=== PATIENT | female | born 1980 | race Caucasian/White ===

== ENCOUNTER 2016-08-02 09:06 | Emergency (ER) | payer MEDICAID ==
[~2016-08-02] VITALS: Wt 80.5 kg
[~2016-08-02 09:06] MED LIST: CIPR500T4 PO
[2016-08-02] MEDS ORDERED: ONDANSETRON (ODT) 4 MG TAB ODT STA (09:42)
--- NOTE | 2016-08-02 09:49 | ERD ---
ER Documentation Chief Complaint Date/Time DATE: 08/02/16 TIME: 09:38 Chief Complaint abdominal pain with nausea and vomiting for 3 days. no diarrhea HPI 36 y/o female presents to ED for epigastric pain for 2 weeks. Vomiting with epigastric pain for the past 2 days stated that she vomits every time she eats. Pain was described as dull/sharp nonradiating with a pain rate of 7/10 at this time. Did not take any medications at home. Denies headache, loss of consciousness, dizziness, blurry vision, changes in vision, photophobia, facial pain, ear pain, throat pain, difficulty swallowing, neck pain, shoulder pain, chest pain, cough, hemoptysis, back pain, loss of appetite, hematochezia, diarrhea, constipation, urinary symptoms, , the possibility of being , bladder and bowel incontinences, extremity weakness, extremity tenderness, numbness or tingling sensation, difficulty walking, recent travel, recent exposure to illness, recent antibiotic use in the last 3 months, fever, chills. Allergy: NKA PMH: Denies Family medical history: Denies AO LMP: 07/04/2017 Medications: Denies Surgery: 2 Primary Social History: Does not work at this time Denies smoking, use of alcohol, use of illegal drugs. ROS All systems reviewed and are negative except as per history of present illness. Medications Home Meds Active Scripts Ciprofloxacin Hcl* (Ciprofloxacin Hcl*) 500 Mg Tablet, 500 MG PO BID for 7 Days , TAB Prov:SIMEON KOCH PA-C 11/18/15 Allergies Allergies: Coded Allergies: No Known Allergy (Unverified , 04/17/14) PMhx/Soc History of Surgery: Yes (CESARIAN) Hx Alcohol Use: No Hx Substance Use: No Hx Tobacco Use: No Smoking Status: Never smoker Physical Exam Vitals Vital Signs Date Time Temp Pulse Resp B/P Pulse Ox O2 Delivery O2 Flow Rate FiO2 08/02/16 09:21 98.1 78 21 124/64 97 Physical Exam CONSTITUTIONAL: Well-appearing; well-nourished; in no apparent distress. HEAD: Normocephalic; atraumatic. EYES: Conjunctiva clear, sclera non-icteric, EOM intact. PERRL Ears: Hearing intact. EACs clear, TMs non-bulging, non-inflamed, translucent & mobile, ossicles normal appearance, No obstructions, no erythema, no discharges Nose: No obstructions. No polyps. No external lesions. Mucosa non-inflamed. No external lesions, septum and turbinates normal. No rhinorrhea. No discharges. Frontal sinus is non-tender to palpation. Maxillary sinus is non-tender to palpation. MOUTH: Moist mucous membranes, no lesion, no obstructions, no vesicles, no thrush, patent airway Throat: Uvula in midline. Right tonsil is +1 with no erythema, no exudate. Left tonsil is +1 with no erythema, no exudate. Tolerating secretions well. Good gag reflex. Patent airway. Neck: Supple, without lesions, bruits, or adenopathy. No mass. Thyroid non- enlarged and non-tender to palpation. CHEST: Symmetrical chest. Respirations even and not labored. No retractions noted. CARDIOVASCULAR: Normal S1, S2. RRR. No murmurs, gallops. RESPIRATORY: Normal chest excursion with respiration; breath sounds clear and equal bilaterally; no wheezes, rhonchi, or rales. Breathing even and unlabored. Speaking in clear, full, and complete sentences w/ ease. ABDOMEN: Normal bowel sounds normal. Soft, round, non-distended, non-guarding, no rebound, no organomegaly, no masses, no pulsating abdominal mass. No hernia. No peritoneal signs. Right upper abdominal tenderness on palpation. : No CVA tenderness. BACK: Symmetrical shoulder. Spine is midline without deformity, tenderness. No evidence of trauma or deformity. PELVIS: Stable pelvis. No evidence of trauma or deformity. MUSCULOSKELETAL: Normal gait and station. No misalignment, asymmetry, crepitation, defects, tenderness, masses, effusions, decreased range of motion, instability, atrophy or abnormal strength or tone in the head, neck, spine, ribs , pelvis or extremities. No calf tenderness. NEUROVASCULAR: Distal pulses are present. Pedal pulse are present, equal, and normal. Capillary refills are < 2 seconds. NEUROLOGIC: Alert and oriented x4. Speaks full and clear sentences. Cranial Nerves II-XII normal. Sensation to pain, touch, and proprioception normal. Grossly unremarkable. No neurologic deficits. Romberg test is negative. PSYCHOLOGICAL: The patients mood and manner are appropriate. No hallucinations , delusions. Not SI. Not HI. Has the capacity to decide for self SKIN: Normal for age and ethnicity; warm; dry; good turgor; no apparent lesions or exudates. No rashes, hives, discoloration. Intact. Result Diagram: 08/02/1695108/02/16951 Results 24 hrs Laboratory Tests Test 08/02/16 09:52 Alanine Aminotransferase (ALT/SGPT) 54IU/L Albumin 4.2g/dl Albumin/Globulin Ratio 1.10 Alkaline Phosphatase 115IU/L Anion Gap 16 Aspartate Amino Transf (AST/SGOT) 35IU/L Basophils # 0.010^3/ul Basophils % 0.3% Blood Urea Nitrogen 8mg/dl Calcium Level 9.5mg/dl Carbon Dioxide Level 28mmol/L Chloride Level 101mmol/L Creatinine 0.59mg/dl Direct Bilirubin 0.00mg/dl Eosinophils # 0.010^3/ul Eosinophils % 0.1% Globulin 3.80g/dl Glucose Level 105mg/dl Hematocrit 39.4% Hemoglobin 14.0g/dl Indirect Bilirubin 0.4mg/dl Lipase 44U/L Lymphocytes # 1.410^3/ul Lymphocytes % 12.2% Mean Corpuscular Hemoglobin 29.8pg Mean Corpuscular Hemoglobin Concent 35.6g/dl Mean Corpuscular Volume 83.7fl Mean Platelet Volume 8.6fl Monocytes # 0.810^3/ul Monocytes % 6.9% Neutrophils # 9.310^3/ul Neutrophils % 80.5% Nucleated Red Blood Cells # 0.010^3/ul Nucleated Red Blood Cells % 0.0/100WBC Platelet Count 52983^3/UL Potassium Level 4.2mmol/L Red Blood Count 4.7010^6/ul Red Cell Distribution Width 14.0% Sodium Level 141mmol/L Total Bilirubin 0.4mg/dl Total Protein 8.0g/dl Urine Bacteria FEW Urine Bilirubin NEGATIVE Urine Clarity CLEAR Urine Color LT. YELLOW Urine Glucose NEGATIVE% Urine Hemoglobin NEGATIVE Urine Ketones TRACE Urine Leukocyte Esterase 1+ Urine Microscopic RBC NONE SEEN/HPF Urine Microscopic WBC 5-10/HPF Urine Nitrite NEGATIVE Urine Specific [place] 1.025 Urine Squamous Epithelial Cells MODERATE Urine Total Protein NEGATIVE Urine Urobilinogen 0.2 E.U./dL Urine pH 6.0 White Blood Count 11.610^3/ul Current Medications Medications (Trade) Dose Ordered Sig/Lazarus Route PRN Reason Start Time Stop Time Status Last Admin Dose Admin Miscellaneous Medication (Gi Cocktail (2)) 40 ml ONCE ONCE PO 08/02/16 10:00 08/02/16 10:01 DC 08/02/16 10:05 Ondansetron HCl (Zofran Odt) 4 mg ONCE STAT ODT 08/02/16 09:42 08/02/16 09:44 DC 08/02/16 10:05 Procedures/MDM Examination: Unremarkable examination except right upper abdominal tenderness on palpation. No peritoneal signs. Disease process, medical treatment was explained to the patient and family member. They verbalized understanding and agreed with the diagnostic tests, medical treatment, and follow-up care. Radiology: Abdominal ultrasound FINDINGS: The liver demonstrates increased echogenicity. The liver is normal in size. The liver measures 15.6 cm in length. There are no focal solid lesions seen. There is no intrahepatic biliary duct dilatation. The portal vein is patent with normal direction of flow. No gallstones are identified within the gallbladder. There is no pericholecystic fluid or gallbladder wall thickening. The common bile duct measures 2.2 mm in maximal dimension. The visualized portions of the pancreas are unremarkable. Right kidney is unremarkable measures 10.7 cm. No free fluid is identified. RPTAT: AA IMPRESSION: Mild fatty infiltration of the liver. Otherwise no evidence of cholelithiasis or biliary ductal dilatation. Blood works unremarkable. POC urine : Urinalysis: Leukocyte esterase is 1+ Treatment: GI cocktail p.o. Re-evaluation: Relieve the pain. Consultation: None Differential diagnosis: Cholecystitis versus abdominal pain versus epigastric pain versus vomiting versus urinary tract infection Medical decision makin36 y/o female presents to ED for epigastric pain for 2 weeks. Vomiting with epigastric pain for the past 2 days stated that she vomits every time she eats. Pain was described as dull/sharp nonradiating with a pain rate of 7/10 at this time. Did not take any medications at home. Patient 's complaint, patient's presentation, my physical findings, diagnostic test results are consistent with my final diagnosis of fatty liver, urinary tract infection. Medications prescribed are the following: Macrobid, ranitidine. Patient and family member are made aware of the side effects and adverse reactions of the medications prescribed. Instructed on when to seek emergent and medical attention in case allergic/anaphylactic reactions or severe side effects and or adverse reactions to medications. Patient and family member verbalized understanding. Patient instructed Instructed to follow-up with his PCP in 24-48 hours. Instructed to Call 911 for chest pain, shortness of breath. Advised to come back here in ED as soon as possible for severity of symptoms which includes but not limited to: any new symptoms; shortness of breath/difficulty of breathing; cardiovascular changes; severe gastrointestinal symptoms; signs and symptoms of bleeding and or infection; signs of compartment syndrome/neurovascular changes; neurological changes/deficits. Patient and family member verbalized understanding. Upon discharge, patient is alert and oriented x 4, speaks full and clear sentences, denies pain, has no neurological deficits, has no neurovascular deficits, difficulty of breathing. Breathing even and unlabored. Lung sounds are clear to auscultation. Denies abdominal pain. No abdominal tenderness. Not in distress. Appears comfortable. Ambulatory with steady gait. Appears satisfied with care provided here in ED. Departure Diagnosis: Primary Impression: Abdominal pain Abdominal location: epigastric Qualified Code: R10.13 - Epigastric pain Additional Impressions: UTI (urinary tract infection) Hematuria presence: without hematuria Fatty liver Condition: Good Additional Instructions: Follow-up with PCP in 24-48 hours. ALYCE BARLOW Aug 02, 2016 09:49
[2016-08-02] MEDS ORDERED: LIDOCAINE/MYLANTA 40 ML BTL PO ONE (10:00)
[2016-08-02 10:16] LABS: ADD UMIC YES; URINE BILIRUBIN (Dip) NEGATIVE (NEGATIVE); URINE BLOOD (Dip) NEGATIVE (NEGATIVE); URINE COLOR LT. YELLOW (YELLOW); URINE GLUCOSE (Dip) NEGATIVE (NEGATIVE); URINE KETONES (Dip) TRACE (NEGATIVE); URINE LEUKOCYTE ESTERASE (Dip) 1+ (NEGATIVE); URINE NITRITE (Dip) NEGATIVE (NEGATIVE); URINE TOTAL PROTEIN (Dip) NEGATIVE (NEGATIVE); URINE UROBILINOGEN (Dip) 0.2 E.U./dL (0.1-1.0)
[2016-08-02 10:20] LABS: BASOPHILS % 0.3 % (0.0-2.0); EOSINOPHILS % 0.1 % (0.0-7.0); HEMATOCRIT 39.4 % (37.0-47.0); LYMPHOCYTES # 1.4 10^3/ul (0.8-2.9); LYMPHOCYTES % 12.2 % (15.0-51.0); MEAN CORPUSCULAR HEMOGLOBIN 29.8 pg (29.0-33.0); MEAN CORPUSCULAR HGB CONC 35.6 g/dl (32.0-37.0); MEAN CORPUSCULAR VOLUME 83.7 fl (82.0-101.0); MEAN PLATELET VOLUME 8.6 fl (7.4-10.4); MONOCYTE # 0.8 10^3/ul (0.3-0.9); MONOCYTES % 6.9 % (0.0-11.0); NEUTROPHIL # 9.3 10^3/ul (1.6-7.5); NEUTROPHILS % 80.5 % (39.0-77.0); PLATELET COUNT 213 10^3/UL (140-440); UNCORRECTED WBC 11.6 10^3/ul (4.8-10.8); WHITE BLOOD COUNT 11.6 10^3/ul (4.8-10.8)
[2016-08-02 10:25] LABS: CONDITION 1
[2016-08-02 10:26] LABS: ALBUMIN 4.2 g/dl (3.3-4.9)
[2016-08-02 10:27] LABS: POTASSIUM 4.2 mmol/L (3.5-5.1)
[2016-08-02 10:28] LABS: BACTERIA,URINE FEW; SQUAMOUS EPITHELIAL CELL,UR MODERATE; URINE RBCS NONE SEEN /HPF (0)
[2016-08-02 10:29] LABS: BILIRUBIN,INDIRECT 0.4 mg/dl (0-1.1); BILIRUBIN,TOTAL 0.4 mg/dl (0.2-1.3); CREATININE 0.59 mg/dl (0.44-1.00)
[2016-08-02 10:30] LABS: ALBUMIN/GLOBULIN RATIO 1.1; CALCIUM 9.5 mg/dl (8.4-10.2)
--- NOTE | 2016-08-02 10:48 | RADRPT ---
PROCEDURE: US Abdomen. CLINICAL INDICATION: Pain TECHNIQUE: Multiple real-time images were acquired of the patient's abdomen utilizing a high resol ution transducer. COMPARISON: CT abdomen pelvis 11/18/2015 FINDINGS: The liver demonstrates increased echogenicity. The liver is normal in size. The liver measures 15.6 cm in length. There are no focal solid lesions seen. There is no intrahepatic biliary duct dilatatio n. The portal vein is patent with normal direction of flow. No gallstones are identified within the gallbladder. There is no pericholecystic fluid or gallbladd er wall thickening. The common bile duct measures 2.2 mm in maximal dimension. The visualized portions of the pancreas are unremarkable. Right kidney is unremarkable measures 10.7 cm. No free fluid is identified. RPTAT: AA IMPRESSION: Mild fatty infiltration of the liver. Otherwise no evidence of cholelithiasis or biliary ductal dilatation. .Angel Buchanan MD, MD Date Time Electronically viewed and signed by .Angel Buchanan MD, on 08/02/2016 10:47 .M/
[2016-08-02] MEDS ORDERED: RANI150T9 PO (11:06)
[2016-08-02] MEDS ORDERED: NITR-58 PO (11:06)
== END 2016-08-02 11:27 | disposition home or self-care (01) ==
LOC: FTE 09:06
DX: R10.13 Epigastric pain (principal); N39.0 Urinary tract infection, site not specified; K76.0 Fatty (change of) liver, not elsewhere classified; R11.2 Nausea with vomiting, unspecified
CPT/HCPCS: 76705; 80053; 81001; 83690; 85025; Z7610; 36415; 81003

== ENCOUNTER 2016-10-01 10:03 | Emergency (ER) | payer MEDICAID ==
[~2016-10-01] VITALS: Wt 72.0 kg
[~2016-10-01 10:03] MED LIST changes: +NITR-58 PO; +RANI150T9 PO
--- NOTE | 2016-10-01 11:02 | ERD ---
ER Documentation Chief Complaint Date/Time DATE: 10/01/16 TIME: 10:58 Chief Complaint right side abd pain radiating to left flank with nausea and dysuria . 2 day HPI 36-year-old female presents to the emergency room for right-sided abdominal pain that radiates to right flank area with nausea and dysuria for 2 days. Patient stated that she had epigastric pain this morning that radiates to right lower quadrant then to her right flank. Stated that she is nauseous but no vomiting. Denies headache, loss of consciousness, dizziness, blurry vision, changes in vision, photophobia, facial pain, ear pain, throat pain, difficulty swallowing, neck pain, shoulder pain, chest pain, cough, hemoptysis, loss of appetite, hematochezia, diarrhea, constipation, , the possibility of being , bladder and bowel incontinences, extremity weakness, extremity tenderness, numbness or tingling sensation, difficulty walking, recent travel, recent exposure to illness, recent antibiotic use in the last 3 months, fever, chills. Allergy: No known drug allergies. PMH: Denies. Family medical history: Denies. AO LMP: 09/11/2016 Medications: Surgery: 2. Primary Social History: Not working at this time. Denies smoking, use of alcohol, use of illegal drugs. ROS All systems reviewed and are negative except as per history of present illness. Medications Home Meds Active Scripts Ondansetron Hcl* (Zofran*) 4 Mg Tablet, 4 MG PO Q8H Y for NAUSEA AND/OR VOMITING , #30 TAB Prov:ALYCE BARLOW 10/01/16 Naproxen* (Naprosyn*) 500 Mg Tablet, 500 MG PO BID Y for PAIN AND/OR INFLAMMATION, #30 TAB Prov:FRANCESILAALYCE CEJA 10/01/16 Ranitidine Hcl* (Zantac*) 150 Mg Tablet, 150 MG PO BID Y for EPIGASTRIC PAIN, # 30 TAB Prov:ALYCE BARLOW 08/02/16 Nitrofurantoin Monohyd Macrocr* (Macrobid*) 100 Mg Capsr, 100 MG PO HS for 7 Days, CAP Prov:PASILABANALYCE F 08/02/16 Ciprofloxacin Hcl* (Ciprofloxacin Hcl*) 500 Mg Tablet, 500 MG PO BID for 7 Days , TAB Prov:SIMEON KOCH PA-C 11/18/15 Allergies Allergies: Coded Allergies: No Known Allergy (Unverified , 04/17/14) PMhx/Soc History of Surgery: Yes (CESARIAN) Hx Alcohol Use: No Hx Substance Use: No Hx Tobacco Use: No Physical Exam Vitals Vital Signs Date Time Temp Pulse Resp B/P Pulse Ox O2 Delivery O2 Flow Rate FiO2 10/01/16 10:05 97.9 79 20 129/69 99 Physical Exam CONSTITUTIONAL: Well-appearing; well-nourished; in no apparent distress. HEAD: Normocephalic; atraumatic. EYES: Conjunctiva clear, sclera non-icteric, EOM intact. PERRL Ears: Hearing intact. EACs clear, TMs non-bulging, non-inflamed, translucent & mobile, ossicles normal appearance, No obstructions, no erythema, no discharges Nose: No obstructions. No polyps. No external lesions. Mucosa non-inflamed. No external lesions, septum and turbinates normal. No rhinorrhea. No discharges. Frontal sinus is non-tender to palpation. Maxillary sinus is non-tender to palpation. MOUTH: Moist mucous membranes, no lesion, no obstructions, no vesicles, no thrush, patent airway Throat: Uvula in midline. Right tonsil is +1 with no erythema, no exudate. Left tonsil is +1 with no erythema, no exudate. Tolerating secretions well. Good gag reflex. Patent airway. Neck: Supple, without lesions, bruits, or adenopathy. No mass. Thyroid non- enlarged and non-tender to palpation. CHEST: Symmetrical chest. Respirations even and not labored. No retractions noted. CARDIOVASCULAR: Normal S1, S2. RRR. No murmurs, gallops. RESPIRATORY: Normal chest excursion with respiration; breath sounds clear and equal bilaterally; no wheezes, rhonchi, or rales. Breathing even and unlabored. Speaking in clear, full, and complete sentences w/ ease. ABDOMEN: Normal bowel sounds normal. Soft, round, non-distended, non-guarding, no rebound, no organomegaly, no masses, no pulsating abdominal mass. No hernia. Right lower abdominal tenderness on deep palpation. No peritoneal signs. : Right-sided CVA tenderness. BACK: Symmetrical shoulder. Spine is midline without deformity, tenderness. No evidence of trauma or deformity. PELVIS: Stable pelvis. No evidence of trauma or deformity. MUSCULOSKELETAL: Normal gait and station. No misalignment, asymmetry, crepitation, defects, tenderness, masses, effusions, decreased range of motion, instability, atrophy or abnormal strength or tone in the head, neck, spine, ribs , pelvis or extremities. No calf tenderness. NEUROVASCULAR: Distal pulses are present. Pedal pulse are present, equal, and normal. Capillary refills are < 2 seconds. NEUROLOGIC: Alert and oriented x4. Speaks full and clear sentences. Cranial Nerves II-XII normal. Sensation to pain, touch, and proprioception normal. Grossly unremarkable. No neurologic deficits. Romberg test is negative. PSYCHOLOGICAL: The patients mood and manner are appropriate. No hallucinations , delusions. Not SI. Not HI. Has the capacity to decide for self SKIN: Normal for age and ethnicity; warm; dry; good turgor; no apparent lesions or exudates. No rashes, hives, discoloration. Intact. Result Diagram: 10/01/16 1116 10/01/16 1116 Results 24 hrs Laboratory Tests Test 10/01/16 11:16 White Blood Count 9.110^3/ul Red Blood Count 4.4510^6/ul Hemoglobin 13.0g/dl Hematocrit 38.5% Mean Corpuscular Volume 86.5fl Mean Corpuscular Hemoglobin 29.2pg Mean Corpuscular Hemoglobin Concent 33.8g/dl Red Cell Distribution Width 13.3% Platelet Count 69640^3/UL Mean Platelet Volume 10.4fl Neutrophils % 69.4% Lymphocytes % 21.9% Monocytes % 7.7% Eosinophils % 0.3% Basophils % 0.3% Nucleated Red Blood Cells % 0.0/100WBC Neutrophils # 6.310^3/ul Lymphocytes # 2.010^3/ul Monocytes # 0.710^3/ul Eosinophils # 0.010^3/ul Basophils # 0.010^3/ul Nucleated Red Blood Cells # 0.010^3/ul Urine Color LT. YELLOW Urine Clarity CLEAR Urine pH 6.5 Urine Specific [place] 1.015 Urine Ketones NEGATIVE Urine Nitrite NEGATIVE Urine Bilirubin NEGATIVE Urine Urobilinogen 0.2 E.U./dL Urine Leukocyte Esterase NEGATIVE Urine Hemoglobin NEGATIVE Urine Glucose NEGATIVE% Urine Total Protein NEGATIVE Sodium Level 142mmol/L Potassium Level 3.7mmol/L Chloride Level 100mmol/L Carbon Dioxide Level 31mmol/L Anion Gap 15 Blood Urea Nitrogen 10mg/dl Creatinine 0.62mg/dl Glucose Level 105mg/dl Calcium Level 9.3mg/dl Total Bilirubin 0.1mg/dl Direct Bilirubin 0.00mg/dl Indirect Bilirubin 0.1mg/dl Aspartate Amino Transf (AST/SGOT) 30IU/L Alanine Aminotransferase (ALT/SGPT) 40IU/L Alkaline Phosphatase 106IU/L Total Protein 7.5g/dl Albumin 4.2g/dl Globulin 3.30g/dl Albumin/Globulin Ratio 1.27 Amylase Level 105U/L Lipase 157U/L Procedures/MDM Examination: Please see physical examination. Disease process, medical treatment was explained to the patient and family member. They verbalized understanding and agreed with the diagnostic tests, medical treatment, and follow-up care. Radiology: CT abdomen and pelvis Impression: No abdominal or pelvic acute inflammatory process, mass, or lymphadenopathy. Hepatomegaly and hepatic steatosis. POC urine : Negative. Urinalysis: Reviewed. Treatment: Re-evaluation: Denies headache, dizziness, neck pain, chest pain, back pain, abdominal pain, pelvic pain. No nausea and vomiting. Patient has no episode of vomiting here the emergency room. No right upper abdominal pain on palpation. No right lower abdominal pain on palpation. No CVA tenderness. Ambulatory with steady gait. No peritoneal signs. Stated that she feels much better this time. Consultation: None. Differential diagnosis: Appendicitis versus pyelonephritis versus ovarian torsion versus ovarian cyst rupture versus cholecystitis Medical decision makin-year-old female presents to the emergency room for right-sided abdominal pain that radiates to right flank area with nausea and dysuria for 2 days. Patient stated that she had epigastric pain this morning that radiates to right lower quadrant then to her right flank. Stated that she is nauseous but no vomiting. Patient's complaint, patient's history about her complaint, my physical findings, my diagnostic test results, my reevaluation are consistent with my final diagnosis of abdominal pain unknown etiology. Medications prescribed are the following: Naprosyn. Zofran. Patient and family member are made aware of the side effects and adverse reactions of the medications prescribed. Instructed on when to seek emergent and medical attention in case allergic/anaphylactic reactions or severe side effects and or adverse reactions to medications. Patient and family member verbalized understanding. Patient instructed Instructed to follow-up with his PCP in 24-48 hours. Community resources was also provided. Instructed to Call 911 for chest pain, shortness of breath. Advised to come back here in ED as soon as possible for severity of symptoms which includes but not limited to: any new symptoms; shortness of breath/difficulty of breathing; cardiovascular changes; severe gastrointestinal symptoms; signs and symptoms of bleeding and or infection; signs of compartment syndrome/neurovascular changes; neurological changes/deficits. Patient and family member verbalized understanding. Upon discharge, patient is alert and oriented x 4, speaks full and clear sentences, denies pain, has no neurological deficits, has no neurovascular deficits, difficulty of breathing. Breathing even and unlabored. Lung sounds are clear to auscultation. Not in distress. Appears comfortable. Ambulatory with steady gait. Appears satisfied with care provided here in ED. Departure Diagnosis: Primary Impression: Abdominal pain Condition: Good Additional Instructions: Patient instructed Instructed to follow-up with his PCP in 24-48 hours. Community resources was also provided. Instructed to Call 911 for chest pain, shortness of breath. Advised to come back here in ED as soon as possible for severity of symptoms which includes but not limited to: any new symptoms; shortness of breath/difficulty of breathing; cardiovascular changes; severe gastrointestinal symptoms; signs and symptoms of bleeding and or infection; signs of compartment syndrome/neurovascular changes; neurological changes/deficits. Patient and family member verbalized understanding. ALYCE BARLOW Oct 01, 2016 11:02
[2016-10-01 11:21] LABS: ADD SCAN DIFF NO
[2016-10-01 11:31] LABS: BASOPHILS % 0.3 % (0.0-2.0); EOSINOPHILS % 0.3 % (0.0-7.0); HEMATOCRIT 38.5 % (37.0-47.0); LYMPHOCYTES % 21.9 % (15.0-51.0); MEAN CORPUSCULAR HEMOGLOBIN 29.2 pg (29.0-33.0); MEAN CORPUSCULAR HGB CONC 33.8 g/dl (32.0-37.0); MEAN CORPUSCULAR VOLUME 86.5 fl (82.0-101.0); MEAN PLATELET VOLUME 10.4 fl (7.4-10.4); MONOCYTE # 0.7 10^3/ul (0.3-0.9); MONOCYTES % 7.7 % (0.0-11.0); NEUTROPHIL # 6.3 10^3/ul (1.6-7.5); NEUTROPHILS % 69.4 % (39.0-77.0); PLATELET COUNT 256 10^3/UL (140-415); RED BLOOD COUNT 4.45 10^6/ul (4.20-5.40); RED CELL DISTRIBUTION WIDTH 13.3 % (11.5-14.5); WHITE BLOOD COUNT 9.1 10^3/ul (4.8-10.8)
[2016-10-01 11:34] LABS: ADD UMIC NO; URINE BILIRUBIN (Dip) NEGATIVE (NEGATIVE); URINE BLOOD (Dip) NEGATIVE (NEGATIVE); URINE COLOR LT. YELLOW (YELLOW); URINE GLUCOSE (Dip) NEGATIVE (NEGATIVE); URINE KETONES (Dip) NEGATIVE (NEGATIVE); URINE LEUKOCYTE ESTERASE (Dip) NEGATIVE (NEGATIVE); URINE NITRITE (Dip) NEGATIVE (NEGATIVE); URINE TOTAL PROTEIN (Dip) NEGATIVE (NEGATIVE); URINE UROBILINOGEN (Dip) 0.2 E.U./dL (0.1-1.0)
[2016-10-01 11:35] LABS: ALBUMIN 4.2 g/dl (3.3-4.9); POTASSIUM 3.7 mmol/L (3.5-5.1)
[2016-10-01 11:38] LABS: ALBUMIN/GLOBULIN RATIO 1.27; BILIRUBIN,INDIRECT 0.1 mg/dl (0-1.1); BILIRUBIN,TOTAL 0.1 mg/dl (0.2-1.3); CALCIUM 9.3 mg/dl (8.4-10.2); CREATININE 0.62 mg/dl (0.44-1.00); TOTAL PROTEIN 7.5 g/dl (6.1-8.1)
--- NOTE | 2016-10-01 12:00 | RADRPT ---
PROCEDURE: CT Abdomen and Pelvis without contrast. CLINICAL INDICATION: Right upper quadrant abdominal pain. TECHNIQUE: CT scan of the abdomen and pelvis without contrast was performed on a multidetector hig h-resolution CT scanner. The patient was scanned without intravenous contrast. Coronal and sagittal reformatted images were obtained from the axial source images. Images were reviewed on a high-resol [employer] PACS workstation. One or more of the following dose reduction techniques were used: Automated exposure control, adjustment of the mA and/or kV according to patient size, use of iterative recon struction technique. The total exam CTDI equals 14.95 mGy and the total exam DLP equals 901.68 mGy- cm. COMPARISON: CT from 11/18/2015. Ultrasound from 08/02/2016. FINDINGS: CT abdomen: The lung bases are clear. The heart size is normal, without pericardial thickening or effusion. The liver is enlarged measuring 19 cm and demonstrates diffusely decreased attenuation without focal mass or intrahepatic biliary dilatation. The spleen is normal in size and homogeneous in density. The stomach is grossly unremarkable. The pancreas as visualized is normal. The gallbladder and bi liary tree are unremarkable and there is no evidence for biliary dilatation. The adrenal glands are symmetric and normal. The kidneys are symmetrically unremarkable as well. No renal calculus or ob structive uropathy or mass lesion is seen. The aorta is of normal caliber. There is no retroperitoneal lymphadenopathy. The karine hepatis reg ion is clear. The small bowel and mesentery, as visualized, are unremarkable. CT pelvis: The small bowel loops situated within the pelvis are unremarkable. The pelvic organs are normal. T he pelvic sidewalls and inguinal regions are clear. The sigmoid colon and rectum are unremarkable. The appendix is normal. No mass, lymphadenopathy, or free fluid is seen. No acute inflammation is s een. The surrounding osseous structures are unremarkable. Mild posterior disk bulges are present at L4- S1. No osteolytic or osteoblastic lesion is detected. IMPRESSION: 1. No abdominal or pelvic acute inflammatory process, mass, or lymphadenopathy. 2. Hepatomegaly and hepatic steatosis. RPTAT: JJ .Long Sy MD, MD Date Time Electronically viewed and signed by .Long Sy MD, on 10/01/2016 12:00 .A/
[2016-10-01] MEDS ORDERED: ONDA4TAB8 PO (12:20)
[2016-10-01] MEDS ORDERED: NAPR-260 PO (12:20)
== END 2016-10-01 12:30 | disposition home or self-care (01) ==
LOC: FTE 10:03
DX: R10.13 Epigastric pain (principal); R11.10 Vomiting, unspecified
CPT/HCPCS: 36415; 74176; 80053; 81003; 82150; 83690; 85025; 87086

== ENCOUNTER 2017-01-16 00:24 | Emergency (ER) | payer MEDICAID ==
[~2017-01-16] VITALS: Ht 167.6 cm; Wt 83.0 kg
[~2017-01-16 00:24] MED LIST changes: +NAPR-260 PO; +ONDA4TAB8 PO
[2017-01-16 00:28] VITALS: Ht 167.6 cm; Wt 83.0 kg
[2017-01-16 01:41] LABS: URINE BLOOD (Dip) POC 2+ (NEGATIVE)
[2017-01-16] MEDS ORDERED: NITR-58 PO (02:03)
[2017-01-16] MEDS ORDERED: PHEN-538 PO (02:03)
--- NOTE | 2017-01-16 02:52 | ERD ---
ER Documentation Chief Complaint Date/Time DATE: 01/16/17 TIME: 02:48 Chief Complaint Pt reports painful urination s/s similar to hx UTI HPI 36-year-old female presents here in emergency department for complaints of dysuria that started today, patient is a urinary tract infection before, is probably similar. Patient described the pain as burning pain, 4/10 scale, is accompanied with urinary urgency and frequency. Patient denies abdominal pain, flank pain, hematuria dysuria. Patient denies any nausea or vomiting. Patient denies any fever or chills. Patient denies any vaginal itching or vaginal discharge. ROS All systems reviewed and are negative except as per history of present illness. Medications Home Meds Active Scripts Phenazopyridine Hcl* (Pyridium*) 200 Mg Tab, 200 MG PO TID Y for URINARY PAIN, # 6 TAB Prov:MAX LUO NP 01/16/17 Nitrofurantoin Monohyd Macrocr* (Macrobid*) 100 Mg Capsr, 100 MG PO BID for 7 Days, CAP Prov:MAX LUO NP 01/16/17 Ondansetron Hcl* (Zofran*) 4 Mg Tablet, 4 MG PO Q8H Y for NAUSEA AND/OR VOMITING , #30 TAB Prov:ALYCE BARLOW 10/01/16 Naproxen* (Naprosyn*) 500 Mg Tablet, 500 MG PO BID Y for PAIN AND/OR INFLAMMATION, #30 TAB Prov:FRANCESILAALYCE CEJA F 10/01/16 Ranitidine Hcl* (Zantac*) 150 Mg Tablet, 150 MG PO BID Y for EPIGASTRIC PAIN, # 30 TAB Prov:ALYCE BARLOW 08/02/16 Nitrofurantoin Monohyd Macrocr* (Macrobid*) 100 Mg Capsr, 100 MG PO HS for 7 Days, CAP Prov:PASILABANALYCE F 08/02/16 Ciprofloxacin Hcl* (Ciprofloxacin Hcl*) 500 Mg Tablet, 500 MG PO BID for 7 Days , TAB Prov:SIMEON KOCH PA-C 11/18/15 Allergies Allergies: Coded Allergies: No Known Allergy (Unverified , 04/17/14) PMhx/Soc History of Surgery: Yes (CESARIAN) Hx Miscellaneous Medical Probl: Yes (UTIs) Hx Alcohol Use: No Hx Substance Use: No Hx Tobacco Use: No Smoking Status: Never smoker FmHx Family History: No coronary disease, No diabetes, No other Physical Exam Vitals Vital Signs Date Time Temp Pulse Resp B/P Pulse Ox O2 Delivery O2 Flow Rate FiO2 01/16/17 00:28 98.1 83 18 131/83 100 Physical Exam GENERAL: The patient is well developed and appropriate for usual state of health, in no apparent distress. CHEST: Clear to auscultation bilaterally. There are no rales, wheezes or rhonchi. HEART: Regular rate and rhythm. No murmurs, clicks, rubs or gallops. No S3 or S4. ABDOMEN: Soft, nontender and nondistended. Good bowel sounds. No rebound or guarding. No gross peritonitis. No gross organomegaly or masses. No Khan sign or McBurney point tenderness. BACK: No midline or flank tenderness. EXTREMITIES: Equal pulses bilaterally. There is no peripheral clubbing, cyanosis or edema. No focal swelling or erythema. Full range of motion. Grossly neurovascularly intact. NEURO: Alert and oriented. Cranial nerves 2-12 intact. Motor strength in all 4 extremities with 5/5 strength. Sensation grossly intact. Normal speech and gait. SKIN: There is no apparent rash or petechia. The skin is warm and dry. HEMATOLOGIC AND LYMPHATIC: There is no evidence of excessive bruising or lymphedema. No gross cervical, axillary, or inguinal lymphadenopathy. Results 24 hrs Laboratory Tests Test 01/16/17 01:46 Bedside Urine pH (LAB) 6.5 Bedside Urine Protein (LAB) Negative Bedside Urine Glucose (UA) Negative Bedside Urine Ketones (LAB) Negative Bedside Urine Blood 2+ Bedside Urine Nitrite (LAB) Negative Bedside Urine Leukocyte Esterase (L 1+ Procedures/MDM Medical Decision Making: Patients symptoms are consistent with urinary tract infection. There is low suspicion for pyelonephritis. There is low suspicion for abdominal emergencies at this time. Patients abdominal exam is normal. There is low suspicion for sepsis. Patient appears well and is hemodynamically stable. Disposition: Home. Stable Prescription Macrobid and Pyridium Instructions: Patient is advised to take medications as prescribed. Patient is advised to rest, increase fluid intake and do good perineal hygiene. Patient is advised that if symptoms are worse, severe abdominal pain, uncontrolled vomiting , high fever, severe flank pain, worst signs and symptoms, to return to the emergency department immediately. Otherwise, patient can follow up with primary care doctor in 5-7 days. Departure Diagnosis: Primary Impression: UTI (urinary tract infection) Urinary tract infection type: acute cystitis Hematuria presence: with hematuria Qualified Code: N30.01 - Acute cystitis with hematuria Condition: Stable Patient Instructions: Understanding Urinary Tract Infections (UTIs) MAX LUO NP Jan 16, 2017 02:52
== END 2017-01-16 02:07 | disposition home or self-care (01) ==
LOC: FTE 00:24
DX: N30.01 Acute cystitis with hematuria (principal)
CPT/HCPCS: 81003; 99283

== ENCOUNTER 2017-06-09 10:32 | Emergency (ER) | payer MEDICAID ==
[~2017-06-09] VITALS: Wt 68.2 kg
[~2017-06-09 10:32] MED LIST changes: +PHEN-538 PO
[2017-06-09] MEDS ORDERED: KETOROLAC 60 MG INJ IM STA (12:25)
[2017-06-09 12:49] LABS: URINE BLOOD (Dip) POC 3+ (NEGATIVE)
[2017-06-09] MEDS ORDERED: ONDA4TAB14 PO (13:11)
[2017-06-09] MEDS ORDERED: PHEN-537 PO (13:11)
[2017-06-09] MEDS ORDERED: NAPR-688 PO (13:11)
[2017-06-09] MEDS ORDERED: NITR-58 PO (13:11)
[2017-06-09] MEDS ORDERED: CIPR500T4 PO (13:11)
--- NOTE | 2017-06-09 13:14 | ERD ---
ER Documentation Chief Complaint Chief Complaint dysuria HPI 36-year-old female presents for burning in urination that began this morning. She also notices a having some chills. Last night started with some mild sharp pain in her suprapubic area as well as her bilateral lower back. States that she had a UTI about 2 months ago was easily treated with ciprofloxacin. States that she is otherwise healthy. Denies any current nausea or vomiting. ROS All systems reviewed and are negative except as per history of present illness. Medications Home Meds Active Scripts Ondansetron (Ondansetron Odt) 4 Mg Tab.rapdis, 4 MG PO Q6H Y for NAUSEA AND/OR VOMITING, #10 TAB Prov:JENNIE CULLEN DO 06/09/17 Naproxen* (Naproxen*) 500 Mg Tablet, 500 MG PO BID Y for PAIN, #14 TAB Prov:JENNIE CULLEN DO 06/09/17 Phenazopyridine Hcl* (Pyridium*) 100 Mg Tab, 100 MG PO TID Y for URINARY PAIN, # 8 TAB Prov:JENNIE CULLEN 06/09/17 Nitrofurantoin Monohyd Macrocr* (Macrobid*) 100 Mg Capsr, 100 MG PO BID for 5 Days, CAP Prov:JENNIE CULLEN 06/09/17 Ciprofloxacin Hcl* (Ciprofloxacin Hcl*) 500 Mg Tablet, 500 MG PO BID for 10 Days , TAB Prov:JENNIE CULLEN DO 06/09/17 Phenazopyridine Hcl* (Pyridium*) 200 Mg Tab, 200 MG PO TID Y for URINARY PAIN, # 6 TAB Prov:MAX LUO NP 01/16/17 Nitrofurantoin Monohyd Macrocr* (Macrobid*) 100 Mg Capsr, 100 MG PO BID for 7 Days, CAP Prov:MAX LUO NP 01/16/17 Ondansetron Hcl* (Zofran*) 4 Mg Tablet, 4 MG PO Q8H Y for NAUSEA AND/OR VOMITING , #30 TAB Prov:ALYCE BARLOW 10/01/16 Naproxen* (Naprosyn*) 500 Mg Tablet, 500 MG PO BID Y for PAIN AND/OR INFLAMMATION, #30 TAB Prov:ALYCE BARLOW 10/01/16 Ranitidine Hcl* (Zantac*) 150 Mg Tablet, 150 MG PO BID Y for EPIGASTRIC PAIN, # 30 TAB Prov:ALYCE BARLOW 08/02/16 Nitrofurantoin Monohyd Macrocr* (Macrobid*) 100 Mg Capsr, 100 MG PO HS for 7 Days, CAP Prov:ALYCE BARLOW 08/02/16 Ciprofloxacin Hcl* (Ciprofloxacin Hcl*) 500 Mg Tablet, 500 MG PO BID for 7 Days , TAB Prov:SIMEON KOCH PA-C 11/18/15 Allergies Allergies: Coded Allergies: No Known Allergy (Unverified , 04/17/14) PMhx/Soc History of Surgery: Yes (CESARIAN) Hx Miscellaneous Medical Probl: Yes (UTIs) Hx Alcohol Use: No Hx Substance Use: No Hx Tobacco Use: No Physical Exam Vitals Vital Signs Date Time Temp Pulse Resp B/P Pulse Ox O2 Delivery O2 Flow Rate FiO2 06/09/17 11:13 97.9 69 20 121/67 98 Physical Exam Const: [] Mild distress Head: Atraumatic Eyes: Normal Conjunctiva ENT: Normal External Ears, Nose and Mouth. Neck: Full range of motion..~ No meningismus. Abd: Soft, mild suprapubic tenderness without guarding or rebound, non distended. Normal bowel sounds Skin: No petechiae or rashes Back: No midline or flank tenderness, normal in appearance to palpation. Ext: No cyanosis, or edema Neur: Awake and alert Psych: Normal Mood and Affect Results 24 hrs Laboratory Tests Test 06/09/17 12:49 Bedside Urine pH (LAB) 5.5 Bedside Urine Protein (LAB) Negative Bedside Urine Glucose (UA) Negative Bedside Urine Ketones (LAB) Negative Bedside Urine Blood 3+ Bedside Urine Nitrite (LAB) Negative Bedside Urine Leukocyte Esterase (L 1+ Current Medications Medications (Trade) Dose Ordered Sig/Lazarus Route PRN Reason Start Time Stop Time Status Last Admin Dose Admin Ketorolac Tromethamine (Toradol) 60 mg ONCE STAT IM 06/09/17 12:25 06/09/17 12:26 DC Procedures/MDM 36-year-old female with very mild pyelonephritis. Vital signs are stable and she feels very well she was given Toradol 60 mg IM. Confirm that she is not and that does have a UTI. She is currently on her menstrual cycle may have some symptoms of that mixed with infection. She appears well and I do not think she would benefit from a hospital admission at this point neither she. Going to discharge her with 10 day course of Cipro as well as 5 day course of Macrobid. Also providing symptomatic relief with Pyridium, naproxen and Zofran as needed. Number care follow-up in 2 3 days and return precautions to ER. Departure Diagnosis: Primary Impression: Pyelonephritis Condition: Stable Patient Instructions: Pyelonephritis, Female (Adult) Referrals: [facility] YOU HAVE RECEIVED A MEDICAL SCREENING EXAM AND THE RESULTS INDICATE THAT YOU DO NOT HAVE A CONDITION THAT REQUIRES URGENT TREATMENT IN THE EMERGENCY DEPARTMENT. FURTHER EVALUATION AND TREATMENT OF YOUR CONDITION CAN WAIT UNTIL YOU ARE SEEN IN YOUR DOCTORS OFFICE WITHIN THE NEXT 1-2 DAYS. IT IS YOUR RESPONSIBILITY TO MAKE AN APPOINTMENT FOR FOLOW-UP CARE. IF YOU HAVE A PRIMARY DOCTOR --you should call your primary doctor and schedule an appointment IF YOU DO NOT HAVE A PRIMARY DOCTOR YOU CAN CALL OUR PHYSICIAN REFERRAL HOTLINE AT IF YOU CAN NOT AFFORD TO SEE A PHYSICIAN YOU CAN CHOSE FROM THE FOLLOWING [facility] [address] [facility]. [facility] [address] [facility]. [facility] [address] [facility] [facility] [address] [facility]. [facility] [address] [facility]. [facility]. [address] Additional Instructions: Llame al doctor MAANA y magdiel cassy IGNACIA PARA DENTRO DE 2-3 VU.Dgale a la secretaria que nosotros le instruimos hacer esta ignacia.Avise o llame si travis condicin se empeora antes de la ignacia. Regresa aqui si peor o no mejor. JENNIE CULLEN DO Jun 09, 2017 13:14
== END 2017-06-09 13:44 | disposition left against medical advice (07) ==
LOC: FTE 10:32
DX: N12 Tubulo-interstitial nephritis, not specified as acute or chronic (principal)
CPT/HCPCS: 81003; 96372; Z7502

== ENCOUNTER 2017-08-24 02:35 | Emergency (ER) | END 2017-08-24 03:47 | disposition home or self-care (01) ==

== ENCOUNTER 2017-09-26 20:04 | Emergency (ER) | END 2017-09-26 21:13 | disposition home or self-care (01) ==

== ENCOUNTER 2017-10-07 09:17 | Emergency (ER) | END 2017-10-07 10:51 | disposition home or self-care (01) ==

== ENCOUNTER 2018-04-24 19:13 | Emergency (ER) | END 2018-04-24 20:29 | disposition home or self-care (01) ==

== ENCOUNTER 2018-05-23 16:14 | Emergency (ER) | END 2018-05-23 17:38 | disposition home or self-care (01) ==

== ENCOUNTER 2018-07-13 15:07 | Emergency (ER) | payer MEDICAID ==
[~2018-07-13] VITALS: Wt 100.2 kg
[~2018-07-13 15:07] MED LIST changes: +CEPH-443 PO; +HYDR-4011 PO; +IBUP-1542 PO; -NAPR-260 PO; +NAPR-688 PO; +NAPR-985 PO; +ONDA4TAB14 PO; +PHEN-537 PO; +RANI150T35 PO; -RANI150T9 PO; +SULF1TAB31 PO
[2018-07-13 15:08] VITALS: BP 132/74; PULSE 71; RESP 18
--- NOTE | 2018-07-13 15:44 | ERD ---
ER Documentation Chief Complaint Chief Complaint ABBIE EAR PAIN HPI 38-year-old female, presents to the emergency department, complaining of 3 days with progressive worsening of bilateral ear pain, described as sharp, constant, sometimes associated with itching but no discharge. No fever, no chills, no sore throat, no foreign bodies. Patient has not taking any medication for this. ROS All systems reviewed and are negative except as per history of present illness. Medications Home Meds Active Scripts Ibuprofen* (Motrin*) 600 Mg Tab, 600 MG PO Q8, #15 TAB Prov:CHRISTIANA GUZMAN MD 07/13/18 Neomycin/Polymyxin/Hydrocort* (Cortisporin* Otic) 10 Ml Susp, 4 DROP BOTH EARS QID for 7 Days, EA Prov:CHRISTIANA GUZMAN MD 07/13/18 Ibuprofen* (Motrin*) 600 Mg Tab, 600 MG PO Q6, #30 TAB Prov:BETHANY ABRAHAMC 05/23/18 Cephalexin* (Keflex*) 500 Mg Capsule, 500 MG PO QID for 5 Days, CAP Prov:BETHANY ABRAHAMC 05/23/18 Cephalexin* (Keflex*) 500 Mg Capsule, 500 MG PO QID for 5 Days, CAP Prov:BETHANY ABRAHAMC 04/24/18 Phenazopyridine Hcl* (Pyridium*) 100 Mg Tab, 100 MG PO TID PRN for URINARY PAIN, #8 TAB Prov:EDMUNDO GOEL PA-C 10/07/17 Cephalexin* (Keflex*) 500 Mg Capsule, 500 MG PO TID for 7 Days, CAP Prov:EDMUNDO GOEL PA-C 10/07/17 Hydrocodone/Acetaminophen ([place] 5-325 Tablet) 1 Each Tablet, 1 EACH PO Q6 for SEVERE PAIN LEVEL 7-10, #7 TAB Prov:JENNIE CULLEN DO 09/26/17 Naproxen* (Naproxen*) 500 Mg Tablet, 500 MG PO BID PRN for PAIN, #20 TAB Prov:JENNIE CULLEN DO 09/26/17 Nitrofurantoin Monohyd Macrocr* (Macrobid*) 100 Mg Capsr, 100 MG PO HS for 5 Days, CAP Prov:JENNIE CULLEN DO 09/26/17 Sulfamethoxazole/Trimethoprim* (Bactrim Ds* Tablet) 1 Each Tablet, 1 TAB PO BID for 5 Days, TAB Prov:JENNIE CULLEN DO 09/26/17 Nitrofurantoin Monohyd Macrocr* (Macrobid*) 100 Mg Capsr, 100 MG PO BID for 7 Days, CAP Prov:MAX LUO NP 08/24/17 Phenazopyridine Hcl* (Pyridium*) 200 Mg Tab, 200 MG PO TID PRN for URINARY PAIN, #6 TAB Prov:MAX LUO SWITCH ENGINEER 08/24/17 Ondansetron (Ondansetron Odt) 4 Mg Tab.rapdis, 4 MG PO Q6H PRN for NAUSEA AND/OR VOMITING, #10 TAB Prov:JENNIE CULLEN DO 06/09/17 Naproxen* (Naproxen*) 500 Mg Tablet, 500 MG PO BID PRN for PAIN, #14 TAB Prov:JENNIE CULLEN 06/09/17 Phenazopyridine Hcl* (Pyridium*) 100 Mg Tab, 100 MG PO TID PRN for URINARY PAIN, #8 TAB Prov:JENNIE CULLEN DO 06/09/17 Nitrofurantoin Monohyd Macrocr* (Macrobid*) 100 Mg Capsr, 100 MG PO BID for 5 Days, CAP Prov:JENNIE CULLEN 06/09/17 Ciprofloxacin Hcl* (Ciprofloxacin Hcl*) 500 Mg Tablet, 500 MG PO BID for 10 Days, TAB Prov:JENNIE CULLEN 06/09/17 Phenazopyridine Hcl* (Pyridium*) 200 Mg Tab, 200 MG PO TID PRN for URINARY PAIN, #6 TAB Prov:MAX LUO NP 01/16/17 Nitrofurantoin Monohyd Macrocr* (Macrobid*) 100 Mg Capsr, 100 MG PO BID for 7 Days, CAP Prov:MAX LUO NP 01/16/17 Ondansetron Hcl* (Zofran*) 4 Mg Tablet, 4 MG PO Q8H PRN for NAUSEA AND/OR VOMITING, #30 TAB Prov:ALYCE BARLOW 10/01/16 Naproxen* (Naprosyn*) 500 Mg Tablet, 500 MG PO BID PRN for PAIN AND/OR INFLAMMATION, #30 TAB Prov:ALYCE BARLOW 10/01/16 Ranitidine Hcl* (Zantac*) 150 Mg Tablet, 150 MG PO BID PRN for EPIGASTRIC PAIN, #30 TAB Prov:ALYCE BARLOW 08/02/16 Nitrofurantoin Monohyd Macrocr* (Macrobid*) 100 Mg Capsr, 100 MG PO HS for 7 Days, CAP Prov:ALYCE BARLOW 08/02/16 Ciprofloxacin Hcl* (Ciprofloxacin Hcl*) 500 Mg Tablet, 500 MG PO BID for 7 Days, TAB Prov:SIMEON KOCH PA-C 11/18/15 Allergies Allergies: Coded Allergies: No Known Allergy (Unverified , 07/13/18) PMhx/Soc History of Surgery: Yes (CESARIAN) Anesthesia Reaction: No Hx Neurological Disorder: No Hx Respiratory Disorders: No Hx Cardiac Disorders: No Hx Psychiatric Problems: No Hx Miscellaneous Medical Probl: Yes (UTIs) Hx Alcohol Use: Yes (social) Hx Substance Use: No Hx Tobacco Use: No Physical Exam Vitals Vital Signs Date Temp Pulse Resp B/P (MAP) Pulse Ox O2 O2 Flow FiO2 Time Delivery Rate 07/13/18 98.5 71 18 132/74 99 15:08 (93) Physical Exam Const: No acute distress Head: Atraumatic Eyes: Normal Conjunctiva ENT: External canals dry, with significant erythema, edema and irritation. Tympanic membranes with mild erythema Neck: Full range of motion. No meningismus. Resp: Clear to auscultation bilaterally Cardio: Regular rate and rhythm, no murmurs Abd: Soft, non tender, non distended. Normal bowel sounds Skin: No petechiae or rashes Back: No midline or flank tenderness Ext: No cyanosis, or edema Neur: Awake and alert Psych: Normal Mood and Affect Procedures/MDM Vital signs stable, differential diagnosis include but not limited to: infection bacterial/viral/fungal. Tonsillitis, eustachian dysfunction, allergies, foreign body, cholesteatoma. Less likely mastoiditis, malignant otitis, meningitis. Physical examination and clinical presentation consistent most likely with otitis externa, likely caused by dermatitis During the ED course the patient remained stable, no new complaints. Clinical impression discussed with the patient who agrees with management. The patient is stable to be treated outpatient and will be discharged home with a Rx for topical antibiotics. Some side effects of prescribed medications (headache, rash, nausea, vomiting, diarrhea, drowsiness, bleeding, hypertension, interactions with other medications) were reviewed. The patient was instructed to follow up with the primary care provider in the next 48h. If symptoms persist, worsen or new symptoms develop, then patient should return to the ED immediately. Disclaimer: Inadvertent spelling and grammatical errors are likely due to EHR/dictation software use and do not reflect on the overall quality of patient care. Also, please note that the electronic time recorded on this note does not necessarily reflect the actual time of the patient encounter. Departure Diagnosis: Primary Impression: Otitis externa Condition: Stable Patient Instructions: External Ear Infection (Adult) Additional Instructions: Muchas elvis por [facility] para travis servicio. Esperamos que en travis visita a la quiana de emergencia travis problema medico haya sido solucionado y que se sienta mucho mejor. Para estar seguros que travis mejoria sigue en proceso, le pedimos el favor de hacer cassy nasir de seguimiento medico con travis doctor primario en los proximos 2-4 sewell. Lleve con usted estos documentos y las medicinas recetadas. Si andie sintomas empeoran, NO SE ESPERE, por favor regrese a quiana de emergencia INMEDIATAMENTE. En kelvin que usted no tenga un mdico de atencin primaria: Llame al mdico o clnica comunitaria de referencia que aparece abajo neeraj las horas de consultorio para hacer cassy nasir para que le vean. CLINICAS: [facility] [phone] [address] [facility] [phone] [address] [facility] [phone] [address] [facility] [phone] [address] [place] [id number] [phone] [facility]. [phone] CHRISTIANA HEART MD Jul 13, 2018 15:44
[2018-07-13] MEDS ORDERED: NPH10OT BOTH EARS (15:45)
[2018-07-13] MEDS ORDERED: IBUP-1542 PO (15:45)
[2018-08-17] MEDS ORDERED: OFLO5DRO7 RIGHT EAR (07:51)
== END 2018-07-13 16:32 | disposition home or self-care (01) ==
LOC: FTE 15:07
DX: H60.93 Unspecified otitis externa, bilateral (principal)
CPT/HCPCS: 99282

== ENCOUNTER 2018-07-15 18:14 | Emergency (ER) | payer SELFPAY ==
[~2018-07-15] VITALS: Wt 102.0 kg
[~2018-07-15 18:14] MED LIST changes: +NPH10OT BOTH EARS
[2018-07-15 18:18] VITALS: BP 135/86; PULSE 79; RESP 18
[2018-08-17] MEDS ORDERED: OFLO5DRO7 RIGHT EAR (07:51)
== END 2018-07-15 20:55 | disposition left against medical advice (07) ==
LOC: FTE 18:14
DX: Z53.21 Procedure and treatment not carried out due to patient leaving prior to being seen by health care provider (principal)

== ENCOUNTER 2018-07-17 12:16 | Emergency (ER) | payer MEDICAID ==
[~2018-07-17] VITALS: Ht 165.1 cm; Wt 100.2 kg
[2018-07-17 12:17] VITALS: BP 128/80; PULSE 79; RESP 19; Ht 165.1 cm; Wt 100.2 kg
[2018-07-17] MEDS ORDERED: KETOROLAC 30 MG INJ IM STA (13:54)
[2018-07-17] MEDS ORDERED: FIORICET PO (14:51)
--- NOTE | 2018-07-17 20:30 | ERD ---
ER Documentation Chief Complaint Chief Complaint headache HPI 38-year-old female presents for headache times 3 days. Pain is noted to be in the front part of the headache. Patient denies any fevers or vomiting. The pain is noted to be 10 out of 10. Patient took ibuprofen and Tylenol at home without relief. Headache described as pulsatile. Patient states that the headache is similar to headaches that she had in the past. ROS All systems reviewed and are negative except as per history of present illness. Medications Home Meds Active Scripts Acetamin/Butalbital/Caffeine* (Fioricet*) [id number] Tab, 1 TAB PO Q6H PRN for PAIN, #30 TAB Prov:CALEB ORO DO 07/17/18 Ibuprofen* (Motrin*) 600 Mg Tab, 600 MG PO Q8, #15 TAB Prov:CHRISTIANA GUZMAN MD 07/13/18 Neomycin/Polymyxin/Hydrocort* (Cortisporin* Otic) 10 Ml Susp, 4 DROP BOTH EARS QID for 7 Days, EA Prov:CHRISTIANA GUZMAN MD 07/13/18 Ibuprofen* (Motrin*) 600 Mg Tab, 600 MG PO Q6, #30 TAB Prov:BETHANY ABRAHAMC 05/23/18 Cephalexin* (Keflex*) 500 Mg Capsule, 500 MG PO QID for 5 Days, CAP Prov:BETHANY ABRAHAMC 05/23/18 Cephalexin* (Keflex*) 500 Mg Capsule, 500 MG PO QID for 5 Days, CAP Prov:BETHANY ABRAHAMC 04/24/18 Phenazopyridine Hcl* (Pyridium*) 100 Mg Tab, 100 MG PO TID PRN for URINARY PAIN, #8 TAB Prov:EDMUNDO GOEL PA-C 10/07/17 Cephalexin* (Keflex*) 500 Mg Capsule, 500 MG PO TID for 7 Days, CAP Prov:EDMUNDO GOEL PA-C 10/07/17 Hydrocodone/Acetaminophen (Vevay 5-325 Tablet) 1 Each Tablet, 1 EACH PO Q6 for SEVERE PAIN LEVEL 7-10, #7 TAB Prov:JENNIE CULLEN DO 09/26/17 Naproxen* (Naproxen*) 500 Mg Tablet, 500 MG PO BID PRN for PAIN, #20 TAB Prov:JENNIE CULLEN DO 09/26/17 Nitrofurantoin Monohyd Macrocr* (Macrobid*) 100 Mg Capsr, 100 MG PO HS for 5 Days, CAP Prov:JENNIE CULLEN DO 09/26/17 Sulfamethoxazole/Trimethoprim* (Bactrim Ds* Tablet) 1 Each Tablet, 1 TAB PO BID for 5 Days, TAB Prov:JENNIE CULLEN DO 09/26/17 Nitrofurantoin Monohyd Macrocr* (Macrobid*) 100 Mg Capsr, 100 MG PO BID for 7 Days, CAP Prov:MAX LUO NP 08/24/17 Phenazopyridine Hcl* (Pyridium*) 200 Mg Tab, 200 MG PO TID PRN for URINARY PAIN, #6 TAB Prov:MAX LUO NP 08/24/17 Ondansetron (Ondansetron Odt) 4 Mg Tab.rapdis, 4 MG PO Q6H PRN for NAUSEA AND/OR VOMITING, #10 TAB Prov:JENNIE CULLEN 06/09/17 Naproxen* (Naproxen*) 500 Mg Tablet, 500 MG PO BID PRN for PAIN, #14 TAB Prov:JENNIE CULLEN 06/09/17 Phenazopyridine Hcl* (Pyridium*) 100 Mg Tab, 100 MG PO TID PRN for URINARY PAIN, #8 TAB Prov:JENNIE CULLEN DO 06/09/17 Nitrofurantoin Monohyd Macrocr* (Macrobid*) 100 Mg Capsr, 100 MG PO BID for 5 Days, CAP Prov:JENNIE CULLEN 06/09/17 Ciprofloxacin Hcl* (Ciprofloxacin Hcl*) 500 Mg Tablet, 500 MG PO BID for 10 Days, TAB Prov:JENNIE CULLEN 06/09/17 Phenazopyridine Hcl* (Pyridium*) 200 Mg Tab, 200 MG PO TID PRN for URINARY PAIN, #6 TAB Prov:MAX LUO NP 01/16/17 Nitrofurantoin Monohyd Macrocr* (Macrobid*) 100 Mg Capsr, 100 MG PO BID for 7 Days, CAP Prov:MAX LUO NP 01/16/17 Ondansetron Hcl* (Zofran*) 4 Mg Tablet, 4 MG PO Q8H PRN for NAUSEA AND/OR VOMITING, #30 TAB Prov:ALYCE BARLOW 10/01/16 Naproxen* (Naprosyn*) 500 Mg Tablet, 500 MG PO BID PRN for PAIN AND/OR INFLAMMATION, #30 TAB Prov:ALYCE BARLOW 10/01/16 Ranitidine Hcl* (Zantac*) 150 Mg Tablet, 150 MG PO BID PRN for EPIGASTRIC PAIN, #30 TAB Prov:ALYCE BARLOW 08/02/16 Nitrofurantoin Monohyd Macrocr* (Macrobid*) 100 Mg Capsr, 100 MG PO HS for 7 Days, CAP Prov:ALYCE BARLOW 08/02/16 Ciprofloxacin Hcl* (Ciprofloxacin Hcl*) 500 Mg Tablet, 500 MG PO BID for 7 Days, TAB Prov:SIMEON KOCH PA-C 11/18/15 Allergies Allergies: Coded Allergies: No Known Allergy (Unverified , 07/13/18) PMhx/Soc History of Surgery: Yes (CESARIAN) Anesthesia Reaction: No Hx Neurological Disorder: No Hx Respiratory Disorders: No Hx Cardiac Disorders: No Hx Psychiatric Problems: No Hx Miscellaneous Medical Probl: Yes (UTIs) Hx Alcohol Use: Yes (social) Hx Substance Use: No Hx Tobacco Use: No Physical Exam Vitals Temperature 97.4, pulse 79, respiration 19, blood pressure 128/80, O2 saturation 99% on room air Physical Exam Const: No acute distress Head: Atraumatic, no frontal or temporal area tenderness to palpation. Eyes: Normal Conjunctiva, pupils equal round reactive to light, ENT: Normal External Ears, Nose and Mouth. Neck: Full range of motion. No meningismus. Resp: Clear to auscultation bilaterally Cardio: Regular rate and rhythm, no murmurs Skin: No petechiae or rashes Back: No midline or flank tenderness Ext: No cyanosis, or edema, 5 out of 5 bilateral upper and lower extremity muscle strength Neur: Awake and alert,bilateral upper and lower extremity sensation intact Psych: Normal Mood and Affect Results 24 hrs Laboratory Tests Test 07/17/18 14:04 POC Beta HCG, Qualitative NEGATIVE Current Medications Medications Dose Sig/Lazarus Start Time Status Last (Trade) Ordered Route PRN Stop Time Admin Dose Reason Admin Ketorolac 30 mg ONCE STAT 07/17/18 DC 07/17/18 Tromethamine IM 13:54 14:12 (Toradol) 07/17/18 13:55 Procedures/MDM Medical Decision Making: Differential diagnosis includes but not limited to primary headache, subarachnoid hemorrhage, meningitis, temporal arteritis, glaucoma, hypertension, cerebral ischemia, carotid or vertebral arterial dissection, brain tumor. Patient appeared well on physical examination, nontoxic appearing. No history of fever. There is low suspicion for meningitis. Given patient's age and no temporal area tenderness to palpation, low suspicion for temporal arteritis. Patient has no vision changes and pupils are reactive bilaterally, low suspicion for glaucoma. There is also no focal neurologic deficits to suggest a brain tumor. Patient has normal sensation and muscle strength, low suspicion for cerebral ischemia. Given headache is similar to prior headaches, patient possibly has a primary headache. In the ER patient given Toradol Symptoms improved with treatment. Patient given prescription for Fioricet Patient advised to follow up with PCP in 1-2 days. Patient advised to return to ED for new or worsening symptoms. Patient stable on discharge from the ED. Disclaimer: Inadvertent spelling and grammatical errors are likely due to EHR/dictation software use and do not reflect on the overall quality of patient care. Also, please note that the electronic time recorded on this note does not necessarily reflect the actual time of the patient encounter. Departure Diagnosis: Primary Impression: Headache Condition: Fair Patient Instructions: Self-Care for Headaches Referrals: [facility] YOU HAVE RECEIVED A MEDICAL SCREENING EXAM AND THE RESULTS INDICATE THAT YOU DO NOT HAVE A CONDITION THAT REQUIRES URGENT TREATMENT IN THE EMERGENCY DEPARTMENT. FURTHER EVALUATION AND TREATMENT OF YOUR CONDITION CAN WAIT UNTIL YOU ARE SEEN IN YOUR DOCTORS OFFICE WITHIN THE NEXT 1-2 DAYS. IT IS YOUR RESPONSIBILITY TO MAKE AN APPOINTMENT FOR FOLOW-UP CARE. IF YOU HAVE A PRIMARY DOCTOR --you should call your primary doctor and schedule an appointment IF YOU DO NOT HAVE A PRIMARY DOCTOR YOU CAN CALL OUR PHYSICIAN REFERRAL HOTLINE AT IF YOU CAN NOT AFFORD TO SEE A PHYSICIAN YOU CAN CHOSE FROM THE FOLLOWING [facility] [address] [facility]. [facility] [address] [facility] [address] [facility]. [facility] [address] [facility]. [facility] [address] [facility]. [facility] [address] Additional Instructions: Call your primary care doctor TOMORROW for an appointment during the next 1-2 days.See the doctor sooner or return here if your condition worsens before your appointment time. CALEB ORO DO Jul 17, 2018 20:30
[2018-08-17] MEDS ORDERED: OFLO5DRO7 RIGHT EAR (07:51)
== END 2018-07-17 15:00 | disposition home or self-care (01) ==
LOC: FTE 12:16
DX: R51 Headache (principal)
CPT/HCPCS: 81025; 96372; J1885; Z7502

== ENCOUNTER 2019-04-19 07:53 | Emergency (ER) | payer MEDICAID ==
[~2019-04-19] VITALS: Ht 160 cm; Wt 90.0 kg
[~2019-04-19 07:53] MED LIST changes: +FIORICET PO; +OFLO5DRO7 RIGHT EAR; +RANI-535 PO; -RANI150T35 PO
[2019-04-19 07:57] VITALS: Ht 160 cm; Wt 90.0 kg
== END 2019-04-19 09:24 | disposition home or self-care (01) ==
LOC: FTE 07:53
DX: M25.561 Pain in right knee (principal); F17.210 Nicotine dependence, cigarettes, uncomplicated
CPT/HCPCS: 73562